=== PATIENT | male | born 1980 | race Caucasian/White ===

== ENCOUNTER 2016-09-10 18:28 | Emergency (ER) | payer OTHER ==
[2016-09-10 18:36] VITALS: BP 127/92; PULSE 109; TEMP 98; BMI 26.6
[2016-09-10] MEDS ORDERED: LIDOCAINE VISCOUS 2% ORAL/TOP 100 ML BOTTLE MM ONE (19:55)
[2016-09-10] MEDS ORDERED: LIDOCAINE HCL 2% JELLY (5 ML/TUBE) ONE (19:57)
[2016-09-10] MEDS ORDERED: ONDANSETRON 4 MG/2 ML VIAL ONE ×2 (19:57→22:54)
[2016-09-10] MEDS ORDERED: ONDANSETRON 4 MG/2 ML VIAL IVPB ONE ×2 (20:10→23:05)
[2016-09-10] MEDS ORDERED: SODIUM CHLORIDE 1,000 ML IV STA ×2 (20:10→23:06)
[2016-09-10] MEDS ORDERED: morphine CARPU-JECT 4 MG/1 ML DISP.SYRIN IVPUSH ONE (20:10)
[2016-09-10] MEDS ORDERED: morphine CARPU-JECT 4 MG/1 ML DISP.SYRIN ONE (20:17)
[2016-09-10 20:35] LABS: BASOPHIL 0.6 % (0-2.0); EOSINOPHIL 0.6 % (0-4.5); MCH 32.3 pg (25.7-33.7); MCHC 33.6 g/dl (32.0-35.9); MEAN PLT VOLUME 8.4 fl (7.5-11.1); NEUTROPHILS 67.9 % (42.8-82.8); PLATELET COUNT 288 K/MM3 (134-434); WHITE BLOOD COUNT 13.4 K/mm3 (4.0-10.0)
[2016-09-10] MEDS ORDERED: SODIUM CHLORIDE 500 ML IV STA (21:09)
--- NOTE | 2016-09-10 21:18 | PDOC ---
History of Present Illness - General Chief Complaint: Rectal Bleed Stated Complaint: RECTAL BLEED/VOMITING/rectal prolapse Time Seen by Provider: 09/10/16 19:18 History Source: Parent(s) (Mother) Exam Limitations: Clinical Condition (Down Syndrome) - History of Present Illness Travel History: No Initial Comments: 09/10/16 21:12 36yo Male patient w/ PmHx: Hemorrhoids, Down Syndrome, Gout and Asthma presented to ED by Mother c/o possible rectal prolapse or protruding hemorrhoids. Patient was recently seen by PCP for asthma exacerbation and put on z-moe w/ prednisone x 1 week ago. Mother states after getting home from shopping, patient went to use bathroom three times which was unusual for him, mother states she heard him in bathroom straining and became concerned. Patient began c/o rectal pain and mother noticed blood on tissue after patient wiped. She called PMD and was instructed to bring patient to ED for evaluation. Enroute to ED mother states patient vomited x 2. Denies fever, hematuria, CP, Abd pain, diarrhea, congestion, diff breathing, rash or any other complaints at this time. Associated residual cough. Past History - Travel Traveled outside of the country in the last 30 days: No Close contact w/someone who was outside of country & ill: No - Past Medical History Allergies/Adverse Reactions: Allergies Allergy/AdvReac Type Severity Reaction Status Date / Time atropine Allergy Verified 09/10/16 18:35 Sulfa (Sulfonamide Allergy Verified 09/10/16 18:35 Antibiotics) Home Medications: Ambulatory Orders Hydrocortisone/Lidocaine/Aloe [Lidocaine-Hc 2.8-0.55% Gel] 100 gm RC BID PRN #1 tube 09/10/16 Ondansetron [Zofran Odt -] 4 mg SL Q6H PRN #20 od.tablet 09/11/16 Asthma: Yes Other medical history: down syndrone - Psycho/Social/Smoking Cessation Hx Suicidal Ideation: No Smoking History: Never smoked Information on smoking cessation initiated: No Hx Alcohol Use: No Drug/Substance Use Hx: No Substance Use Type: None Abd/GI Specific PMHX - Complaint Specific PMHX Colitis: No Diverticulitis: No Gall Bladder Disease: No GERD: No Hepatitis: No Irritable Bowel Synd (IBS): No Pancreatitis: No GI Ulcer Disease: No Review of Systems - Review of Systems Able to Perform ROS?: Yes (Mother) Is the patient limited Guinean proficient: No Constitutional: No: Chills, Fever, Weakness HEENTM: No: Nose Congestion, Throat Pain, Difficulty Swallowing Respiratory: Yes: Cough. No: Orthopnea, Shortness of Breath, Stridor, Wheezing , Productive cough Cardiac (ROS): No: Chest Pain, Lightheadedness, Palpitations, Syncope, Chest Tightness ABD/GI: Yes: Nausea, Vomiting. No: Blood Streaked Bowels, Constipated, Diarrhea , Poor Appetite, Poor Fluid Intake, Rectal Bleeding, Abdominal cramping, Tarry Stools : No: Dysuria, Flank Pain, Hematuria, Urgency Musculoskeletal: No: Back Pain Integumentary: No: Bruising, Erythema, Rash Neurological: No: Headache, Seizure, Tingling, Weakness, Dizziness All Other Systems: Reviewed and Negative *Physical Exam - Vital Signs Last Vital Signs Temp Pulse Resp BP Pulse Ox 98 F 109 H 18 127/92 100 09/10/16 18:34 09/10/16 18:34 09/10/16 18:34 09/10/16 18:34 09/10/16 18:34 - Physical Exam General Appearance: Yes: Nourished, Appropriately Dressed, Mild Distress. No: Apparent Distress, Moderate Distress, Severe Distress Neck: positive: Trachea midline, Supple. negative: Rigid, Lymphadenopathy (R), Lymphadenopathy (L) Respiratory/Chest: positive: Lungs Clear, Normal Breath Sounds. negative: Respiratory Distress, Accessory Muscle Use, Labored Respiration, Rapid RR, Stridor, Wheezing Cardiovascular: positive: Regular Rhythm, Regular Rate. negative: Edema, JVD, Murmur Gastrointestinal/Abdominal: positive: Normal Bowel Sounds, Soft. negative: Distended, Guarding, Rebound, Tenderness Rectal Exam: positive: normal rectal tone, hemorrhoids (Internal protruding) Musculoskeletal: positive: Normal Inspection. negative: CVA Tenderness Extremity: positive: Normal Capillary Refill, Normal Inspection, Normal Range of Motion. negative: Pedal Edema, Swelling Integumentary: positive: Normal Color, Dry, Warm. negative: Rash, Swelling Neurologic: positive: Alert, Normal Mood/Affect, Normal Response ED Treatment Course - LABORATORY CBC & Chemistry Diagram: 09/10/16 20:00 09/10/16 22:35 - ADDITIONAL ORDERS Additional order review: Laboratory Results 09/10/16 20:00 Sodium Cancelled Potassium Cancelled Chloride Cancelled Carbon Dioxide Cancelled Anion Gap Cancelled BUN Cancelled Creatinine Cancelled Creat Clearance w eGFR Cancelled Random Glucose Cancelled Calcium Cancelled Total Bilirubin Cancelled AST Cancelled ALT Cancelled Alkaline Phosphatase Cancelled Total Protein Cancelled Albumin Cancelled 09/10/16 20:00 RBC 5.69 H MCV 96.0 MCHC 33.6 RDW 14.0 MPV 8.4 Neutrophils % 67.9 Lymphocytes % 20.5 Monocytes % 10.4 H Eosinophils % 0.6 Basophils % 0.6 - RADIOLOGY Radiology Studies Ordered: Category Date Time Status CHEST X-RAY PORTABLE* [RAD] Stat Radiology 09/10/16 19:55 Completed - Medications Given in the ED: ED Medications Discontinued Medications Generic Name Dose Route Start Last Admin Trade Name Freq PRN Reason Stop Dose Admin Sodium Chloride 1,000 mls @ 1,000 mls/hr 09/10/16 20:10 09/10/16 20:14 Normal Saline - IV 09/10/16 21:09 1,000 mls/hr ASDIR STA Administration Lidocaine HCl 15 ml 09/10/16 19:55 09/10/16 20:08 Xylocaine 2% Viscous MM 09/10/16 19:56 1 applic ONCE ONE Administration Morphine Sulfate 4 mg 09/10/16 20:10 09/10/16 20:15 Morphine Injection - IVPUSH 09/10/16 20:11 4 mg ONCE ONE Administration Ondansetron HCl 4 mg 09/10/16 20:10 09/10/16 20:15 Zofran Injection IVPB 09/10/16 20:11 4 mg ONCE ONE Administration *DC/Admit/Observation/Transfer Diagnosis at time of Disposition: Hemorrhoids Qualifiers: Hemorrhoid type: second degree Qualified Code(s): K64.1 - Second degree hemorrhoids Nausea and vomiting Qualifiers: Vomiting type: unspecified Vomiting Intractability: non-intractable Qualified Code(s): R11.2 - Nausea with vomiting, unspecified - Discharge Dispostion Disposition: HOME Condition at time of disposition: Improved Admit: No - Prescriptions Prescriptions: Hydrocortisone/Lidocaine/Aloe [Lidocaine-Hc 2.8-0.55% Gel] 100 gm RC BID PRN #1 tube PRN Reason: Hemorrhoids Ondansetron [Zofran Odt -] 4 mg SL Q6H PRN #20 od.tablet PRN Reason: Nausea - Referrals Referrals: Rafael Hoffman MD [Primary Care Provider] - Ivy Trinidad MD [Staff Physician] - - Patient Instructions Printed Discharge Instructions: DI for Hemorrhoids Additional Instructions: FOLLOW UP WITH YOUR PRIMARY CARE PROVIDER REGARDING TREATMENT OF HEMORRHOIDS. ALSO, FOLLOW UP WITH DR. TRINIDAD (SURGERY) FOR POSSIBLE SURGICAL CORRECTION OF HEMORRHOIDS. ADMINISTER MEDICATIONS PRESCRIBED. RETURN IF SYMPTOMS WORSEN, OR ANY CONCERNS FOR FURTHER EVALUATION. Print Language: BRITISH
--- NOTE | 2016-09-10 22:57 | PDOC ---
[id number] 100 09/10/16 18:34 09/10/16 18:34 09/10/16 18:34 09/10/16 18:34 09/10/16 18:34 ED Treatment Course - LABORATORY CBC & Chemistry Diagram: 09/10/16 20:00 09/10/16 22:35 - ADDITIONAL ORDERS Additional order review: Laboratory Results 09/10/16 20:00 Sodium Cancelled Potassium Cancelled Chloride Cancelled Carbon Dioxide Cancelled Anion Gap Cancelled BUN Cancelled Creatinine Cancelled Creat Clearance w eGFR Cancelled Random Glucose Cancelled Calcium Cancelled Total Bilirubin Cancelled AST Cancelled ALT Cancelled Alkaline Phosphatase Cancelled Total Protein Cancelled Albumin Cancelled 09/10/16 20:00 RBC 5.69 H MCV 96.0 MCHC 33.6 RDW 14.0 MPV 8.4 Neutrophils % 67.9 Lymphocytes % 20.5 Monocytes % 10.4 H Eosinophils % 0.6 Basophils % 0.6 - Medications Given in the ED: ED Medications Discontinued Medications Generic Name Dose Route Start Last Admin Trade Name Freq PRN Reason Stop Dose Admin Sodium Chloride 1,000 mls @ 1,000 mls/hr 09/10/16 20:10 09/10/16 20:14 Normal Saline - IV 09/10/16 21:09 1,000 mls/hr ASDIR STA Administration Sodium Chloride 500 mls @ 500 mls/hr 09/10/16 21:09 09/10/16 22:00 Normal Saline - IV 09/10/16 22:08 500 mls/hr ASDIR STA Administration Lidocaine HCl 15 ml 09/10/16 19:55 09/10/16 20:08 Xylocaine 2% Viscous MM 09/10/16 19:56 1 applic ONCE ONE Administration Morphine Sulfate 4 mg 09/10/16 20:10 09/10/16 20:15 Morphine Injection - IVPUSH 09/10/16 20:11 4 mg ONCE ONE Administration Ondansetron HCl 4 mg 09/10/16 20:10 09/10/16 20:15 Zofran Injection IVPB 09/10/16 20:11 4 mg ONCE ONE Administration Medical Decision Making - Medical Decision Making 09/10/16 22:56 agree with care from LEILA Frederick *DC/Admit/Observation/Transfer Diagnosis at time of Disposition: Hemorrhoids, Nausea & vomiting - Discharge Dispostion Disposition: HOME Condition at time of disposition: Improved - Prescriptions Prescriptions: Hydrocortisone/Pramoxine [Analpram Hc 2.5% Cream] 30 gm RC BID #1 cream.appl Hydrocortisone/Lidocaine/Aloe [Lidocaine-Hc 2.8-0.55% Gel] 100 gm RC BID PRN #1 tube PRN Reason: Hemorrhoids Ondansetron [Zofran Odt -] 4 mg SL Q6H PRN #20 od.tablet PRN Reason: Nausea - Referrals Referrals: Rafael Hoffman MD [Primary Care Provider] - Ivy Trinidad MD [Staff Physician] - - Patient Instructions Printed Discharge Instructions: DI for Hemorrhoids Additional Instructions: FOLLOW UP WITH YOUR PRIMARY CARE PROVIDER REGARDING TREATMENT OF HEMORRHOIDS. ALSO, FOLLOW UP WITH DR. TRINIDAD (SURGERY) FOR POSSIBLE SURGICAL CORRECTION OF HEMORRHOIDS. ADMINISTER MEDICATIONS PRESCRIBED. RETURN IF SYMPTOMS WORSEN, OR ANY CONCERNS FOR FURTHER EVALUATION. Print Language: DANISH - Post Discharge Activity
[2016-09-10 23:47] LABS: URINE APPEARANCE CLEAR; URINE BILIRUBIN NEGATIVE (NEGATIVE); URINE BLOOD NEGATIVE (NEGATIVE); URINE COLOR LTYELLOW; URINE GLUCOSE (UA) NEGATIVE (NEGATIVE); URINE KETONE 1+ (NEGATIVE); URINE LEUK ESTERASE NEGATIVE (NEGATIVE); URINE NITRITE NEGATIVE (NEGATIVE); URINE PROTEIN NEGATIVE (NEGATIVE); URINE UROBILINOGEN NEGATIVE E.U./dl (0.2-1.0)
[2016-09-11 00:16] LABS: ALBUMIN 3.3 g/dl (3.4-5.0); ALK PHOS 50 U/L (45-117); ANION GAP 12 (8-16); BILIRUBIN,TOTAL 1.9 mg/dL (0.2-1.0); CALCIUM 7.7 mg/dL (8.5-10.1); CO2 25 mmol/L (21-32); CREATININE 0.7 mg/dL (0.7-1.3); GLUCOSE,RANDOM 109 mg/dL (74-106); SGOT/AST 24 U/L (15-37); SGPT/ALT 53 U/L (12-78); TOT PROT 6.4 g/dl (6.4-8.2)
[2016-09-11] MEDS ORDERED: ONDANSETRON 4 MG/2 ML VIAL IVPB ONE (00:44)
[2016-09-11] MEDS ORDERED: ONDANSETRON 4 MG/2 ML VIAL ONE (00:47)
== END 2016-09-11 00:59 | disposition home or self-care (01) ==
LOC: JER 18:28
PROC: 3E033NZ Introduction of Analgesics, Hypnotics, Sedatives into Peripheral Vein, Percutaneous Approach (ICD-10-PCS; principal; 2016-09-10)
PROC: 3E033GC Introduction of Other Therapeutic Substance into Peripheral Vein, Percutaneous Approach (ICD-10-PCS; 2016-09-10)
PROC: 3E0337Z Introduction of Electrolytic and Water Balance Substance into Peripheral Vein, Percutaneous Approach (ICD-10-PCS; 2016-09-10)
DX: K64.1 Second degree hemorrhoids (principal); R11.2 Nausea with vomiting, unspecified; Q90.9 Down syndrome, unspecified; J45.909 Unspecified asthma, uncomplicated
CPT/HCPCS: 36415; 71010-TC; 80053; 81003; 85025; 99282-25